=== PATIENT | female | born 1965 | race Two or more races ===

== ENCOUNTER 2017-12-05 20:17 | Emergency (ER) | payer OTHER, MEDICAID ==
[~2017-12-05] VITALS: Ht 165.1 cm; Wt 77.1 kg
[2017-12-05] MEDS ORDERED: ACETAMINOPHEN/CODEINE#3 (300/30mg) TAB PO ONE (22:45)
[2017-12-06 01:27] VITALS: BP 136/80
== END 2017-12-06 02:26 | disposition home or self-care (01) ==
LOC: ER 20:20
DX: S93.492A Sprain of other ligament of left ankle, initial encounter (principal); F17.210 Nicotine dependence, cigarettes, uncomplicated; Z88.0 Allergy status to penicillin; X58.XXXA Exposure to other specified factors, initial encounter; Y93.89 Activity, other specified; Y99.8 Other external cause status; Y92.89 Other specified places as the place of occurrence of the external cause
CPT/HCPCS: 73610; 73630

== ENCOUNTER 2017-12-16 15:15 | Emergency (ER) | payer OTHER, MEDICAID ==
[~2017-12-16] VITALS: Ht 157.5 cm; Wt 104.3 kg
[2017-12-16] MEDS ORDERED: LORazepam 2MG/ML-1ML VIAL IM ONE ×2 (16:45→17:15)
[2017-12-16 17:08] LABS: Urine WBC None Seen /hpf (0 - 5)
[2017-12-16] MEDS ORDERED: HALOPERIDOL LACTATE 5 MG/ML INJ VIAL IM ONE (17:15)
[2017-12-16 17:34] LABS: Urine Bacteria NONE SEEN /hpf (None Seen); Urine Blood Negative /uL (Negative); Urine Mucus FEW (None Seen); Urine Specific Gravity 1.008 (1.001-1.035)
[2017-12-16 17:48] LABS: Alcohol, Urine < 3.0 mg/dL (0-5); Amphetamine Screen, Urine NEGATIVE (NEGATIVE); Barbiturate Scree,Urine NEGATIVE (NEGATIVE); Benzodiazephine Screen, Urine NEGATIVE (NEGATIVE); Cannabinoid Screen, Urine NEGATIVE (NEGATIVE); Cocaine Screen, Urine NEGATIVE (NEGATIVE); Opiate Scree,Urine NEGATIVE (NEGATIVE); Phencyclidine Screen, Urine NEGATIVE (NEGATIVE)
[2017-12-16 18:13] VITALS: BP 156/106
[2017-12-16] MEDS ORDERED: ACETAMINOPHEN 325 MG TAB PO ONE (18:30)
== END 2017-12-16 19:19 | disposition home or self-care (01) ==
LOC: EDBD 15:15 → ER 15:15
DX: S00.03XA Contusion of scalp, initial encounter (principal); S80.01XA Contusion of right knee, initial encounter; S80.02XA Contusion of left knee, initial encounter; E78.5 Hyperlipidemia, unspecified; I10 Essential (primary) hypertension; F17.210 Nicotine dependence, cigarettes, uncomplicated; Z88.0 Allergy status to penicillin; W18.39XA Other fall on same level, initial encounter; Y93.89 Activity, other specified; Y99.8 Other external cause status; Y92.89 Other specified places as the place of occurrence of the external cause
CPT/HCPCS: 70450; 72125; 73560; 73562; 80307; 81001; 96372; 99285; J1630; J2060

== ENCOUNTER 2017-12-17 21:39 | Emergency (ER) | payer OTHER, MEDICAID ==
[~2017-12-17] VITALS: Ht 160 cm; Wt 86.6 kg
[2017-12-17 21:59] VITALS: BP 131/88
== END 2017-12-18 00:12 | disposition left against medical advice (07) ==
LOC: ER 21:39 → EDBD 21:39 → ER 12-18 00:12
DX: O26.892 Other specified pregnancy related conditions, second trimester (principal); M79.1 Myalgia; Z3A.23 23 weeks gestation of pregnancy; Z53.21 Procedure and treatment not carried out due to patient leaving prior to being seen by health care provider